=== PATIENT | male | born 2000 | race Two or more races ===

== ENCOUNTER 2024-04-27 00:28 | Emergency (ER) | payer SELFPAY ==
[~2024-04-27] VITALS: Ht 175.3 cm; Wt 92.0 kg
[2024-04-27 00:30] VITALS: TEMP 97.6
[2024-04-27] MEDS: AMOX TR/POT CLAV 875 MG/125 MG TABLET PO ONE (00:47)
[2024-04-27] MEDS ORDERED: AMOX-457 PO (00:52)
[2024-04-27 01:28] VITALS: BP 132/81; PULSE 68; RESP 16; O2SAT 100
== END 2024-04-27 01:31 | disposition home or self-care (01) ==
LOC: EMS 00:31
DX: S51.851A Open bite of right forearm, initial encounter (principal); Y04.1XXA Assault by human bite, initial encounter; Y93.89 Activity, other specified; Y92.89 Other specified places as the place of occurrence of the external cause; Y99.8 Other external cause status
CPT/HCPCS: 99283